=== PATIENT | female | born 1970 | race Two or more races ===

== ENCOUNTER 2018-11-14 07:23 | Day surgery (SDC) | payer OTHER ==
[~2018-11-14] VITALS: Ht 165.1 cm; Wt 70.3 kg
[2018-11-14 08:04] VITALS: BP 143/83
[2018-11-14 09:47] VITALS: BP 136/74
== END 2018-11-14 10:55 | disposition home or self-care (01) ==
LOC: GI 07:23 → DS 09:15 → OR 09:15 → GI 10:55
DX: I85.10 Secondary esophageal varices without bleeding (principal); K74.60 Unspecified cirrhosis of liver; K76.6 Portal hypertension; Z79.899 Other long term (current) drug therapy; Z87.59 Personal history of other complications of pregnancy, childbirth and the puerperium; Z98.890 Other specified postprocedural states
CPT/HCPCS: 43235; J1200; J1610; J2250; J2310; J3010; J3490